=== PATIENT | female | born 1950 | race Two or more races ===

== ENCOUNTER 2024-05-20 18:05 | Emergency (ER) | payer MEDICARE, MEDICAID, SELFPAY ==
[2024-05-20 18:06] VITALS: BMI 34.2
--- NOTE | 2024-05-20 18:13 | EKG_ITS ---
[facility] Test Date: 2024-05-20 Pat Name: ANITA LAWSON Department: Room: - Gender: Female Paster Supervisor: : 1950 Requested By: Leandro Herzog Order Number: [id number] Reading MD: Leandro Herzog Measurements Intervals Robert Rate: 68 P: 55 WI: 140 QRS: 61 QRSD: 129 T: 25 QT: 394 QTc: 420 Interpretive Statements SINUS RHYTHM INDETERMINATE AXIS RIGHT BUNDLE BRANCH BLOCK [120+ ms QRS DURATION, UPRIGHT V1, 40+ ms S IN I/aVL/V4/V5/V6] Compared to ECG 06/17/2019 15:52:39 Indeterminate axis now present Right bundle-branch block now present Intraventricular conduction delay no longer present /store/S0/[id number]/ecg/[id number].pdf
[2024-05-20 18:35] VITALS: BP 129/78; PULSE 67; RESP 18; TEMP 36.8; O2SAT 96
--- NOTE | 2024-05-20 18:49 | XR_ITS ---
Examination: CT cervical spine without contrast 2-D sagittal reconstructions 2-D coronal reconstructions 3-D reconstructions. Exam date and time:May 20, 2024 1804 hours Seizures today, patient fell with injury to the head, head pain CTDI:vol (mGy) 7.97 DLP: (mGycm) 167 Technique: Multiple 2 mm axial sections of the cervical spine have been obtained. The coronal and sagittal reconstructions have been obtained. 3-D reconstructions have been obtained. Low dose protocols were performed. One or more of the following dose reduction techniques were used; automated exposure control, adjustment of the mA and/or KV according to patient size, use of iterative reconstruction technique. Findings: Axial sections demonstrate intact base of the skull. C1 exhibit satisfactory relationship to the odontoid. No acute cervical vertebral body fracture seen. Alignment posterior spinous processes satisfactory. Impression: No acute cervical fracture. Consider elective brain MRI follow-up, seizure protocol
--- NOTE | 2024-05-20 18:49 | XR_ITS ---
Examination: CT brain head without contrast. 2-D sagittal coronal reconstructions Date and time of exam:May 20, 2024 1854 hrs. Indications: Seizures today, patient fell with injury to the neck, neck pain CTDI: vol (mGy):44.7 DLP: (mGycm):917 Technique: Multiple CT axial sections of the brain have been obtained, 5 mm slice thickness. Contrast has not been administered. 2-D sagittal, coronal reconstructions have been obtained Low dose protocols were performed. One or more of the following dose reduction techniques were used; automated exposure control, adjustment of the mA and/or KV according to patient size, use of iterative reconstruction technique. Findings: No significant ventricular enlargement. Intra-axial or extra-axial hemorrhage density is not seen. No mass effect or midline shift Basal cisterns are not remarkable. Fourth ventricle is midline. Cranial vault intact. Impression: Negative for acute hemorrhage, mass effect or midline shift
--- NOTE | 2024-05-20 18:49 | XR_ITS ---
Examination: PA chest single view Technique: Portable AP upright chest single view Exam date and time: May 20, 2024 1906 hours Indications: Patient fell today with into the chest, chest pain Findings: Normal heart size No pneumothorax Clavicles ribs appear intact Impression: No pneumothorax pulmonary contusion or hemothorax
--- NOTE | 2024-05-20 18:50 | EDRME_ITS ---
Rapid Medical Screening Exam [facility] Arrival date/time: 05/20/24 18:05 73F with history of seizures (on phenobarbital; no recent dose changes) presents to ED with about 5 seizures yesterday and today lasting about 5 minutes each. Usually, she only gets breakthrough seizures about once a month. Patient did fall and hit her head during one of the episodes today. Chief Complaint: Seizure Vital signs: Vital Signs Temperature 98.3 F 05/20/24 18:35 Pulse Rate 67 05/20/24 18:35 Respiratory Rate 18 05/20/24 18:35 Blood Pressure 129/78 05/20/24 18:35 Pulse Oximetry (%) 96 05/20/24 18:35 Oxygen Delivery Method Room Air 05/20/24 18:35
--- NOTE | 2024-05-20 19:14 | PD.EDADULT ---
ED General RME/HPI General Chief complaint: Seizure Stated complaint: SEIZURES SINCE YESTERDAY, HX OF SEIZURES Time Seen by Provider: 05/20/24 18:57 Arrival date/time: 05/20/24 18:05 CC: Multiple seizures with a history of seizure. Currently patient is awake alert oriented nontoxic-appearing has no complaints no pain. RME / HPI RME / HPI narrative: 05/20/24 18:05 73F with history of seizures (on phenobarbital; no recent dose changes) presents to ED with about 5 seizures yesterday and today lasting about 5 minutes each. Usually, she only gets breakthrough seizures about once a month. Patient did fall and hit her head during one of the episodes today. Related Data Home Medications ?Medication ?Instructions ?Recorded ?Confirmed phenobarbital 97.2 mg tablet 97.2 mg PO BID 03/13/21 03/13/21 Allergies Allergy/AdvReac Type Severity Reaction Status Date / Time No Known Allergies Allergy Verified 05/20/24 18:08 Review of Systems Review of Systems Narrative Review of Systems: GEN: No fever, no chills, no weight loss EYES: No discharge, no visual changes, no pain HEENT: No ear pain, no congestion, no sore throat PULM: No shortness of breath, no cough, no congestion CV: No chest pain, no dyspnea on exertion, no palpitations GI: No nausea, no vomiting, no diarrhea, no pain, no constipation : No frequency, no urgency, no dysuria MUSC/SKEL: No joint pain, no back pain SKIN: No rash PSYCH: No hallucinations, no depression HEME/LYMPH: No easy bleeding or bruising tendencies NEURO: No weakness, no headache ED Exam Narrative Physical exam: [General: Not in any acute distress Head normocephalic HEENT: Within acceptable limits Neck is supple nontender Chest equal chest rise nontender to palpation Respiratory: Clear to auscultation no wheezes crackles or rubs CV: Rate rhythm is regular no murmurs rubs or clicks Abdomen is distended secondary to body habitus soft nontender no masses positive bowel sounds all 4 quadrants Back: No CVA tenderness no spinous process tenderness from cervical spine thoracic and lumbar spine Skin: Intact no petechiae rash induration ulceration or crepitus Extremities: Moving all extremity against resistance cap refill less than 2 seconds neurosensory intact Neuro: Awake alert oriented x2, person and place, Glascow coma 15 no focal deficits] Course Quality Measures none Orders Category Date Time Status Blood glucose [Bedside Blood Glucose] NOW Care 05/20/24 18:13 Active EKG (ED ONLY) *Do not use* NOW Care 05/20/24 18:[address] cervical spine wo con Stat Exams 05/20/24 18:[address] head/brain wo con Stat Exams 05/20/24 18:49 Completed EKG (ED Only) Stat Exams 05/20/24 18:13 Draft XR chest 1V portable Stat Exams 05/20/24 18:49 Completed B-Type Natriuretic Peptide Stat Lab 05/20/24 19:12 Completed CBC Stat Lab 05/20/24 19:12 Completed Comprehensive Metabolic Panel Stat Lab 05/20/24 19:12 Completed Lactate (Lactic Acid) Stat Lab 05/20/24 19:12 Results Magnesium Stat Lab 05/20/24 19:12 Completed Troponin I Stat Lab 05/20/24 19:12 Completed Urinalysis Stat Lab 05/20/24 18:50 Ordered LORazepam [Ativan] Med 05/20/24 18:52 Discontinued 1 mg PO X1 ONE Vital Signs Vital signs: Vital Signs Temperature 98.3 F 05/20/24 18:35 Pulse Rate 67 05/20/24 18:35 Respiratory Rate 18 05/20/24 18:35 Blood Pressure 129/78 05/20/24 18:35 Pulse Oximetry (%) 96 05/20/24 18:35 Oxygen Delivery Method Room Air 05/20/24 18:35 [facility] Patient data External records reviewed:: [facility] previous records Clinical information provided by:: patient Social determinants that could affect healthcare access:: none Patient has the following chronic illnesses:: Seizure disorder How is presenting disease/condition affected by chronic disease/condition?: exacerbated by Evaluation data The following diagnostics were reviewed and interpreted by me:: lab results and radiology exam(s) Lab and/or radiology exams considered but not ordered:: CBC shows no acute leukocytosis anemia thrombocytopenia CMP shows no acute electrolyte imbalances renal impairment transaminitis or T. bili elevation Troponin is negative BNP is negative. The patient is afebrile nontoxic-appearing I am sorry Interpretation Summary: after lengthy interview with the patient's and the patient's family members the patient is decreased on the phenobarbital by [facility] without consulting neurology which is increasing number of seizures I was advised the patient to return to the original phenobarbital dose, which the daughter states that [facility] was not willing to do. I informed them that is not what they want but rather what is important for the patient, and if they are not able to manage it to refer her to a neurologist and the mother can either pay for it [id number] or wait for the referral. Either way the phenobarbital dose needs to be increased. Medications Medications considered but not ordered:: None Medication administrations:: Medication Administration History Discontinued Medications Lorazepam (Lorazepam 0.5 Mg Tablet) 1 mg PO X1 ONE Stop: 05/20/24 18:53 Last Admin: 05/20/24 19:15 Dose: 1 mg Documented By: CVL None Consultations Consultation(s) initiated? (list below): No Diagnosis Differential Diagnosis ED Complaint MDM: Pseudoseizures seizures seizure disorder Most likely diagnosis given after review of the tests above:: Seizure most likely secondary to subtherapeutic antiseizure medication Admission Indicated Admission indicated?: not indicated Explain why admission is indicated or not indicated:: Stable for discharge Admission Request Was there a request for admission?: No Disposition Plan Disposition Plan: Discharge Discharge Attestation Discharge Attestation: The patient and all family members were given an opportunity to ask questions and understood the discharge instructions. Discharge instructions specifically effects, indications for sooner follow up or return to the emergency department, and the expected course of current diagnosis. Patient condition: Stable Medical Decision Making Differential Diagnosis Differential Diagnosis: Pseudoseizures seizures seizure disorder Lab Data 05/20/24 19:12 05/20/24 19:12 Labs: Lab Results 05/20/24 Range/Units 19:12 WBC 7.0 (3.6-11.0) Thou/mm3 RBC 4.41 (4.00-5.20) Miln/mm3 Hgb 13.4 (12.0-16.0) g/dL Hct 39.7 (36.0-46.0) % MCV 90 (80-100) fL MCH 30.4 (25.0-35.0) pg MCHC 33.8 (31.0-37.0) g/dl RDW Std Deviation 41.7 (36.4-46.3) fL Plt Count 289 (140-440) Thou/mm3 Neut % (Auto) 62 (37-80) % Lymph % (Auto) 25 (10-50) % [place] % (Auto) 12 (0-12) % Eos % (Auto) 1 (0-10) % Baso % (Auto) 1 (0-2.5) % Neut # (Auto) 4.3 (1.8-7.7) Thou/mm3 Lymph # (Auto) 1.7 (1.0-4.8) Thou/mm3 Freeborn # (Auto) 0.8 (0.0-0.8) Thou/mm3 Eos # (Auto) 0.1 (0.0-0.5) Thou/mm3 Baso # (Auto) 0.0 (0.0-0.2) Thou/mm3 Immature Gran # (Auto) 0.02 H (0.00-0.00) Thou/mm3 Absolute Nucleated RBC 0.00 (0.00-0.00) Thou/mm3 Immature Gran % 0 (0-0) % Nucleated RBC % 0 (0) /100 WBC Sodium 143 (136-145) mMol/L Potassium 3.5 (3.4-5.1) mMol/L Chloride 106 (98-107) mMol/L Carbon Dioxide 24.6 (20.0-31.0) mMol/L Anion Gap 12 (7-16) BUN 13 (9-23) mg/dL Creatinine 0.8 (0.6-1.3) mg/dL Estim Creat Clear Calc 52.8 L (>60) mL/min eGFR > 60 (60 - ) See Note BUN/Creatinine Ratio 16 (12-20) Ratio Glucose 102 (74-106) mg/dL Calculated Osmolality 285 (275-295) Lactic Acid 2.5 H (0.4-2.0) mMol/L Calcium 9.7 (8.3-10.6) mg/dL Corrected Calcium 9.7 (8.5-10.1) mg/dL Magnesium 2.1 (1.6-2.6) mg/dL Total Bilirubin 0.3 (0.3-1.2) mg/dL AST 16 (0-34) U/L ALT 13 (10-49) U/L Alkaline Phosphatase 146 H (46-116) U/L Troponin I < 0.020 (0.0-0.045) ng/mL B-Natriuretic Peptide 65 (0-100) pg/mL Total Protein 7.3 (5.7-8.2) gm/dL Albumin 4.4 (3.4-4.8) gm/dL Globulin 2.9 (2.3-3.5) gm/dL Albumin/Globulin Ratio 1.5 (1.2-2.2) Discharge Plan Plan Patient Disposition: HOME (Self Care) Patient condition on transfer: Stable Prescriptions/Referrals Prescriptions/Med Rec: No Action phenobarbital 97.2 mg Tablet 97.2 mg PO BID Referrals: Marquez Tenorio MD [Primary Care Provider] - In 1 week Delfino Kim MD [Physician] - In 1 week Problem List Clinical Impression: Generalized seizure Patient/Caregiver Discharge Instructions Other Activity Instructions:: Follow-up with [facility] center return to the original dose of phenobarbital to reduce the number of seizures. If they are not willing to is prescribe these medications follow-up with the neurologist listed above or get a referral. Education Materials: ED Seizure, Recurrent (Adult) Print Language: Syriac Stand Alone Forms: Karin Award Info., Work/School Release, Patient Portal Info Letter PA/AYESHA Supervising Physician PA/AYESHA Supervising Physician: Cristobal Michel ENP
[2024-05-20] MEDS: LORazepam 0.5 MG TABLET 1 MG PO (19:15)
[2024-05-20 19:20] VITALS: BP 142/77; PULSE 61; RESP 18; TEMP 36.6; O2SAT 98
[2024-05-20 19:22] LABS: Lactate (Lactic Acid) 2.5 mMol/L (0.4-2.0)
[2024-05-20 19:23] LABS: Basophils % (Auto) 1 % (0-2.5); Eosinophils # (Auto) 0.1 Thou/mm3 (0.0-0.5); Eosinophils % (Auto) 1 % (0-10); Hematocrit 39.7 % (36.0-46.0); Hemoglobin 13.4 g/dL (12.0-16.0); Immature Granulocytes % (Auto) 0 % (0-0); Immature Granulocytes Auto 0.02 Thou/mm3 (0.00-0.00); Lymphocytes # (Auto) 1.7 Thou/mm3 (1.0-4.8); Lymphocytes % (Auto) 25 % (10-50); Mean Corpuscular HGB Conc 33.8 g/dl (31.0-37.0); Mean Corpuscular Hemoglobin 30.4 pg (25.0-35.0); Mean Corpuscular Volume 90 fL (80-100); Monocytes # (Auto) 0.8 Thou/mm3 (0.0-0.8); Monocytes % (Auto) 12 % (0-12); Neutrophils # (Auto) 4.3 Thou/mm3 (1.8-7.7); Neutrophils % (Auto) 62 % (37-80); Nucleated Red Blood Cell % 0 /100 WBC (0); Platelet Count 289 Thou/mm3 (140-440); RDW Standard Deviation 41.7 fL (36.4-46.3); Red Blood Count 4.41 Miln/mm3 (4.00-5.20)
[2024-05-20 19:44] LABS: B-Type Natriuretic Peptide 65 pg/mL (0-100)
[2024-05-20 19:46] LABS: Alanine Aminotransferase 13 U/L (10-49); Albumin, Serum 4.4 gm/dL (3.4-4.8); Albumin/Globulin Ratio 1.5 (1.2-2.2); Alkaline Phosphatase 146 U/L (46-116); Anion Gap 12 (7-16); Aspartate Amino Transferase 16 U/L (0-34); BUN/Creatinine Ratio 16 Ratio (12-20); Bilirubin,Total 0.3 mg/dL (0.3-1.2); Blood Urea Nitrogen 13 mg/dL (9-23); Calcium 9.7 mg/dL (8.3-10.6); Calcium (Corrected) 9.7 mg/dL (8.5-10.1); Carbon Dioxide 24.6 mMol/L (20.0-31.0); Chloride 106 mMol/L (98-107); Creatinine (Component) 0.8 mg/dL (0.6-1.3); Estimated Creatinine Clearance 52.8 mL/min (>60); Globulin 2.9 gm/dL (2.3-3.5); Glucose 102 mg/dL (74-106); Magnesium 2.1 mg/dL (1.6-2.6); Osmolality,Calculated 285 (275-295); Potassium 3.5 mMol/L (3.4-5.1); Sodium 143 mMol/L (136-145); Total Protein 7.3 gm/dL (5.7-8.2); Troponin I < 0.020 ng/mL (0.0-0.045); eGFR > 60 See Note
[2024-05-20 21:07] VITALS: BP 127/68; PULSE 60; TEMP 36.9; O2SAT 97
[2024-05-20 22:18] LABS: Reflex Lactate? Y
== END 2024-05-20 21:08 | disposition home or self-care (01) ==
PROVIDERS: Physician Assistant; Emergency Provider Emergency Medicine; PCP Family Medicine
DX: G40.409 Other generalized epilepsy and epileptic syndromes, not intractable, without status epilepticus (principal); Z79.899 Other long term (current) drug therapy
CPT/HCPCS: 36415; 70450; 71045; 72125; 80053; 81001; 83605; 83735; 83880; 84484; 85025; 93005; 99284; A9270